=== PATIENT | female | born 1995 | race Caucasian/White ===

== ENCOUNTER 2021-11-16 05:30 | Emergency (ER) | payer BC ==
[~2021-11-16] VITALS: Ht 167.6 cm; Wt 72.6 kg
[2021-11-16] MEDS ORDERED: [UNRECOGNIZED DRUG - OTHER] (05:40)
== END 2021-11-16 09:17 | disposition home or self-care (01) ==
LOC: ER 05:30
DX: N94.6 Dysmenorrhea, unspecified (principal); R10.9 Unspecified abdominal pain